=== PATIENT | male | born 1980 | race Caucasian/White ===

== ENCOUNTER 2022-09-21 08:15 | Outpatient (CLI) | payer OTHER | END 2022-09-21 08:16 | disposition home or self-care (01) | LOC: CSHULT 08:15 | PROVIDERS: ATTEND Family Medicine Sports Medicine | DX: R79.89 Other specified abnormal findings of blood chemistry (principal); K76.9 Liver disease, unspecified | CPT/HCPCS: 76700 ==

== ENCOUNTER 2022-11-11 07:31 | Outpatient (CLI) | payer OTHER ==
[2022-11-11] MEDS ORDERED: Iopamidol 300 61% 100 ML VIAL FS ONE (15:22)
== END 2022-11-11 07:32 | disposition home or self-care (01) ==
LOC: CSHCT 07:31
PROVIDERS: ATTEND Family Medicine Sports Medicine
DX: R93.5 Abnormal findings on diagnostic imaging of other abdominal regions, including retroperitoneum (principal); K76.0 Fatty (change of) liver, not elsewhere classified; K76.9 Liver disease, unspecified
CPT/HCPCS: 74170; Q9967

== ENCOUNTER 2024-10-23 01:51 | Emergency (ER) | payer OTHER ==
[2024-10-23] MEDS ORDERED: AFRIN NASAL MIST 15 ML BOT ONE (01:53)
== END 2024-10-23 03:32 | disposition home or self-care (01) ==
LOC: CSHERS 01:51
DX: R04.0 Epistaxis (principal); I10 Essential (primary) hypertension; F17.290 Nicotine dependence, other tobacco product, uncomplicated
CPT/HCPCS: 99283